=== PATIENT | female | born 1970 | race Caucasian/White ===

== ENCOUNTER → 2022-02-03 | Outpatient (CLI) | payer BC | END | disposition home or self-care (01) | LOC: LAB SHORT 17:33 | DX: R30.0 Dysuria (principal) | CPT/HCPCS: 87077; 87086; 87186 ==

== ENCOUNTER 2022-05-23 08:04 | Day surgery (SDC) | payer BC ==
[~2022-05-23] VITALS: Ht 170.2 cm; Wt 88.5 kg
[2022-05-23] MEDS ORDERED: Percocet 5-3251 EACH (08:27)
[2022-05-23] MEDS ORDERED: CYCL10 (08:27)
[2022-05-23] MEDS ORDERED: GABA800 (08:27)
== END 2022-05-23 10:17 | disposition home or self-care (01) ==
LOC: ORSCSDS 08:04
PROVIDERS: Surgery
PROC: 0DJD8ZZ Inspection of Lower Intestinal Tract, Via Natural or Artificial Opening Endoscopic (ICD-10-PCS; principal; 2022-05-23 09:15)
DX: Z12.11 Encounter for screening for malignant neoplasm of colon (principal); F17.210 Nicotine dependence, cigarettes, uncomplicated; K21.9 Gastro-esophageal reflux disease without esophagitis; Z79.899 Other long term (current) drug therapy
CPT/HCPCS: J2704; J7120

== ENCOUNTER 2022-10-16 07:53 | Day surgery (SDC) | payer BC ==
[~2022-10-16] VITALS: Ht 172.7 cm; Wt 91.1 kg
[2022-10-16] VITALS (10 sets, daily range): BP systolic 112–150; BP diastolic 67–110
[~2022-10-16 07:53] MED LIST: CYCL10; GABA800; METO5A PO; MULVITA PO; PANT40 PO; Percocet 5-3251 EACH; TOPI25 PO; VITAMIN B-625 MG PO; VITAMIN B125000 MC1 PO
--- NOTE | 2022-10-16 09:17 | NUR ---
Ambulatory in Day Surgery. History, Chart, Medications and Allergies reviewed before start of procedure. Lungs clear T/O to Auscultation. Patient confirms NPO status and agrees with scheduled surgery. Pre-Op teaching done. Pt verbalizes understanding. Patient States Post-Procedure ride home has been arranged.
--- NOTE | 2022-10-16 10:22 | NUR ---
10/16/22 Eli Yeager HISTORY, CHART, MEDICATIONS AND ALLERGIES REVIEWED BEFORE START OF PROCEDURE. PATIENT CONFIRMS NPO STATUS AND AGREES WITH SCHEDULED PROCEDURE. 3-LEAD EKG REVIEWED WITH PHYSICIAN PRIOR TO START OF PROCEDURE. MONITOR INTACT WITH CONTINUOUS PULSE OXIMETRY,CAPNOGRAPHY, 3-LEAD EKG, INTERMITTENT BP. SUPPLEMENTAL O2 TO BE TITRATED THROUGHOUT PROCEDURE TO MAINTAIN O2 SATURATION ABOVE 90%. PATIENT DETERMINED TO BE ASA APPROPRIATE FOR PROPOFOL SEDATION PRIOR TO START OF PROCEDURE BY .
--- NOTE | 2022-10-16 10:45 | NUR ---
REPORT RECIEVED. PT SITTING UP TOLERING PO FLUIDS. DR POWERS AND FAMILY AT BEDSIDE. VSS ON ROOM AIR
--- NOTE | 2022-10-16 11:13 | NUR ---
Patient up to Ambulate independently. Gait steady. Discharge instructions reviewed with patient. AND FAMILY Patient verbalizes understanding. Copy given to patient to take home. Discharged via wheelchair to private car for ride home. PERSCRIPTION CALLED INTO [facility] PER DR CARNEY ORDER FOR PROTONIX 40MG TWICE A DAY, QUANITY 60 X 6. BELINGINGS RETURNED
== END 2022-10-16 11:18 | disposition home or self-care (01) ==
LOC: ORSCMMR 07:53 → ORD 09:30 → ORSCMMR 09:30
PROVIDERS: Internal Medicine Gastroenterology
PROC: 0DB88ZX Excision of Small Intestine, Via Natural or Artificial Opening Endoscopic, Diagnostic (ICD-10-PCS; principal; 2022-10-16 09:30)
PROC: 0DB68ZX Excision of Stomach, Via Natural or Artificial Opening Endoscopic, Diagnostic (ICD-10-PCS; principal; 2022-10-16 09:30)
DX: R10.9 Unspecified abdominal pain (principal); K22.10 Ulcer of esophagus without bleeding; K29.70 Gastritis, unspecified, without bleeding; K21.9 Gastro-esophageal reflux disease without esophagitis; Z98.84 Bariatric surgery status; Z80.0 Family history of malignant neoplasm of digestive organs; F17.210 Nicotine dependence, cigarettes, uncomplicated; Z79.899 Other long term (current) drug therapy
CPT/HCPCS: 88305; 88341; 88342; A9270; J2704; J7120

== ENCOUNTER → 2022-11-05 | Outpatient (CLI) | payer BC | END | disposition home or self-care (01) | LOC: LAB SHORT 08:54 → LAB 08:54 | DX: N39.0 Urinary tract infection, site not specified (principal) | CPT/HCPCS: 87077; 87086; 87186 ==

== ENCOUNTER 2022-11-20 09:22 | Day surgery (SDC) | payer BC ==
[~2022-11-20] VITALS: Ht 170.2 cm; Wt 89.8 kg
[2022-11-20] VITALS (11 sets, daily range): BP systolic 109–152; BP diastolic 78–116
[~2022-11-20 09:22] MED LIST changes: -Percocet 5-3251 EACH; +Roxicodone5 MG PO
--- NOTE | 2022-11-20 11:12 | NUR ---
11/20/22 1112 Kriss Pederson HISTORY, CHART, MEDICATIONS AND ALLERGIES REVIEWED BEFORE START OF PROCEDURE. PATIENT CONFIRMS NPO STATUS AND AGREES WITH SCHEDULED PROCEDURE. 3-LEAD EKG REVIEWED WITH PHYSICIAN PRIOR TO START OF PROCEDURE. MONITOR INTACT WITH CONTINUOUS PULSE OXIMETRY,CAPNOGRAPHY, 3-LEAD EKG, INTERMITTENT BP. SUPPLEMENTAL O2 TO BE TITRATED THROUGHOUT PROCEDURE TO MAINTAIN O2 SATURATION ABOVE 90%. PATIENT DETERMINED TO BE ASA APPROPRIATE FOR PROPOFOL SEDATION PRIOR TO START OF PROCEDURE BY
--- NOTE | 2022-11-20 11:43 | NUR ---
Discharge instructions reviewed with patient. Patient verbalizes understanding. Copy given to patient to take home. Patient States Post-Procedure ride home has been arranged. Discharged via wheelchair to private car for ride home.
== END 2022-11-20 11:44 | disposition home or self-care (01) ==
LOC: ORSCMMR 09:22 → ORD 10:00 → ORSCMMR 11:44
PROVIDERS: Internal Medicine Gastroenterology
PROC: 0DB78ZX Excision of Stomach, Pylorus, Via Natural or Artificial Opening Endoscopic, Diagnostic (ICD-10-PCS; principal; 2022-11-20 10:00)
DX: K25.3 Acute gastric ulcer without hemorrhage or perforation (principal); K29.70 Gastritis, unspecified, without bleeding; K21.9 Gastro-esophageal reflux disease without esophagitis; Z98.84 Bariatric surgery status; Z79.899 Other long term (current) drug therapy; Z87.891 Personal history of nicotine dependence
CPT/HCPCS: 88305; 88312; A9270; J2704; J7120

== ENCOUNTER → 2023-01-23 | Outpatient (CLI) | payer BC ==
[2023-01-28 15:09] LABS: HPV 16 Negative (Negative); HPV 18 Negative (Negative); HPV OTHER HR TYPES Negative (Negative)
== END ==
LOC: LAB SHORT 16:45 → LAB 16:45
PROVIDERS: Advanced Practice Midwife
DX: Z01.419 Encounter for gynecological examination (general) (routine) without abnormal findings (principal)
CPT/HCPCS: 87624; G0145

== ENCOUNTER → 2023-04-05 | Outpatient (CLI) | payer BC | LOC: LAB SHORT 11:50 → LAB 11:50 | DX: N39.0 Urinary tract infection, site not specified (principal) | CPT/HCPCS: 87086 ==

== ENCOUNTER 2024-05-30 09:37 | Day surgery (SDC) | payer BC ==
[2024-05-30] VITALS (10 sets, daily range): BP systolic 123–137; BP diastolic 74–86
[~2024-05-30] VITALS: Ht 170.2 cm; Wt 77.3 kg
[~2024-05-30 09:37] MED LIST changes: +CLIMARA1 EACH TOP; -CYCL10; +CYCL10 PO; +CeFAZolin Sodium 2,000 MG in NS 100 ML IV SCH; +Dexamethasone Sod Phos 10 MG/ML 1ML VIAL ONE; +FentaNYL Citrate 50 MCG/ML 2 ML Injection ONE; -GABA800; +GABA800 PO; +Lactated Ringer's 1,000 ML IV SCH; +Ondansetron HCl 2 MG / ML 2ML Vial ONE; +Rocuronium Bromide 10 MG/ML 5ML Injection IV ONE; +Sugammadex Sodium 200 MG/2ML SDV (100 MG/ML) ONE; +WEGOVY0.5 MG/0.5 SC; +propofoL 40 ML IV ONE
[2024-05-30] MEDS ORDERED: Bupivacaine 0.25% Epi 1:200000 30 ML Vial ONE (09:49)
[2024-05-30] MEDS ORDERED: BACTRIM DS TAB1 EAC1 PO (09:50)
[2024-05-30] MEDS ORDERED: Ipratropium/Albuterol SulF 2.5-0.5MG/3 ML Amp INH ONE (09:50)
[2024-05-30] MEDS ORDERED: Midazolam HCl 1MG / ML 2ML Vial IV ONE (10:30)
[2024-05-30] MEDS ORDERED: FentaNYL Citrate 50 MCG/ML 2 ML Injection ONE (11:04)
[2024-05-30] MEDS ORDERED: Atropine Sulfate 0.1 MG/ML 10ML SYR IV PRN (11:10)
[2024-05-30] MEDS ORDERED: Albuterol 2.5 MG/3 ML VIAL INH PRN (11:10)
[2024-05-30] MEDS ORDERED: FentaNYL Citrate 50 MCG/ML 2 ML Injection IV PRN ×4 (11:10→13:15)
[2024-05-30] MEDS ORDERED: Ondansetron HCl 2 MG / ML 2ML Vial IV PRN ×2 (11:15→13:20)
[2024-05-30] MEDS ORDERED: Morphine Sulfate 4 MG/1 ML Injection IV PRN (11:15)
[2024-05-30] MEDS ORDERED: Metoclopramide HCl 5MG / ML 2ML Vial IV PRN (11:15)
[2024-05-30] MEDS ORDERED: Labetalol HCL 5 MG/ML 4ML Injection (Single Dose) ONE (11:15)
[2024-05-30] MEDS ORDERED: Ketorolac Tromethamine 30mg Vial ONE (11:25)
[2024-05-30] MEDS ORDERED: Phenylephrine HCl 100 MCG/ML-NS 10MLSYR (1MG/10ML) ONE (12:48)
[2024-05-30] MEDS ORDERED: DiphenhydrAMINE HCL 25 MG Cap PO PRN (13:15)
[2024-05-30] MEDS ORDERED: Metoclopramide HCl 10 MG Tab PO PRN (13:15)
[2024-05-30] MEDS ORDERED: FLU VACC TS2024-25(6MOS UP)/PF 45 MCG/0.5 ML SYRINGE IM SCH (13:15)
[2024-05-30] MEDS ORDERED: Ketorolac Tromethamine 30mg Vial IV PRN (13:15)
[2024-05-30] MEDS ORDERED: Simethicone 80 MG Chew PO PRN (13:15)
[2024-05-30] MEDS ORDERED: OxyCODONE HCL 5 MG TAB PO PRN (13:20)
--- NOTE | 2024-05-30 14:18 | NUR ---
TRANSFER TO UNIT PATIENT TRANSFERRED FROM PACU TO UNIT AT APPROX 1345. PATIENT LETHARGIC - EASILY AROUSABLE WITH VERBAL STIMULI. VSS. PLACED ON 2L VIA NC SATs 98-99% ON ROOM AIR. S/P LAP TOTAL HYSTER. VSS. X4 LAP SITES WITH WOUND GLUE - X1 SITE R LOWER ABD WITH GAUZE AND TEGADERM DX DUE TO DEVELOPING HEMATOMA PER ENGINEERING SCIENTIST. HEMATOMA NOT VISUALIZED UNDER DRESSING. SCANT VAGINAL BLEEDING ON JEROME PAD. REPORTING ABD PAIN - KPAD PLACED. DENIES N/V - WATER AND SNACKS WITHIN REACH. ENCOURAGING PO INTAKE PRIOR TO ORAL NARCOTIC ADMINISTRATION. SPOUSE AT BEDSIDE. CALL LIGHT IN REACH
[2024-05-30] MEDS ORDERED: SIME80CH PO (16:44)
[2024-05-30] MEDS ORDERED: IBUP800 PO (16:45)
[2024-05-30] MEDS ORDERED: OXAYDO5 M1 PO (16:46)
--- NOTE | 2024-05-30 16:58 | NUR ---
DISCHARGE NOTE NO ACUTE CHANGES SINCE ARRIVAL TO UNIT. PATIENT REMAINS ALERT AND ORIENTED X4. MUCH MORE ALERT FOLLOWING MORE REST POST OP. VSS. TITRATED TO ROOM AIR, SATs >90%. UP AMBULATING IN ROOM INDEPENDENTLY. VOIDING. TOLERATING PO INTAKE. PAIN MANAGED WITH PRESCRIBED THERAPY. SCANT VAGINAL BLEEDING ON PAD. X4 LAP SITES C/D/I. NO GROWTH NOTED TO HEMATOMA. MD LLOYD CONTACTED WITH UPDATE - DC HOME ORDERED. IV REMOVED. DC EDUCATION PROVIDED - PATIENT STATES UNDERSTANDING. PERSONAL BELONGINGS WITH PATIENT. PATIENT DC HOME AT APPROX 1655.
== END 2024-05-30 16:57 | disposition home or self-care (01) ==
LOC: ORSCMMR 09:37 → ORD 10:30 → SURS 14:01 → ORSCMMR 16:57
PROVIDERS: Obstetrics & Gynecology
PROC: 0UT9FZZ Resection of Uterus, Via Natural or Artificial Opening With Percutaneous Endoscopic Assistance (ICD-10-PCS; principal; 2024-05-30 10:30)
PROC: 0UT7FZZ Resection of Bilateral Fallopian Tubes, Via Natural or Artificial Opening With Percutaneous Endoscopic Assistance (ICD-10-PCS; principal; 2024-05-30 10:30)
DX: N93.9 Abnormal uterine and vaginal bleeding, unspecified (principal); N80.03 Adenomyosis of the uterus; F17.210 Nicotine dependence, cigarettes, uncomplicated; K21.9 Gastro-esophageal reflux disease without esophagitis; Z79.899 Other long term (current) drug therapy
CPT/HCPCS: 86850; 86900; 86901; 88307; A9270; J0690; J1100; J1885; J2250; J2371; J2405; J2704; J3010; J7120

== ENCOUNTER → 2024-12-27 | Outpatient (CLI) | payer BC ==
[~2024-12-27] MED LIST changes: +BACTRIM DS TAB1 EAC1 PO; -CeFAZolin Sodium 2,000 MG in NS 100 ML IV SCH; -Dexamethasone Sod Phos 10 MG/ML 1ML VIAL ONE; -FentaNYL Citrate 50 MCG/ML 2 ML Injection ONE; +IBUP800 PO; -Lactated Ringer's 1,000 ML IV SCH; +OXAYDO5 M1 PO; -Ondansetron HCl 2 MG / ML 2ML Vial ONE; -Rocuronium Bromide 10 MG/ML 5ML Injection IV ONE; +SIME80CH PO; -Sugammadex Sodium 200 MG/2ML SDV (100 MG/ML) ONE; -propofoL 40 ML IV ONE
== END ==
LOC: LAB SHORT 17:00 → LAB 17:00
DX: N39.0 Urinary tract infection, site not specified (principal)
CPT/HCPCS: 87077; 87086; 87186